=== PATIENT | male | born 1955 | race African-American/Black ===

== ENCOUNTER 2019-09-26 00:02 | Emergency (ER) | payer MEDICAID ==
[~2019-09-26] VITALS: Ht 177.8 cm; Wt 100.0 kg
[~2019-09-26 00:02] MED LIST: ALBU2SYR3 PO; AMOX125S12 PO; BENA20TA10 PO; PHEN100C4 PO
[2019-09-26] MEDS ORDERED: SODIUM CHLORIDE 0.9% 1,000 ML IV ONE (00:30)
[2019-09-26 00:57] LABS: CHLORIDE 105 mEq/L (98-107)
[2019-09-26 01:01] LABS: BASOPHILS % 0.5 % (0.0-2.0); EOSINOPHILS % 6.8 % (0.0-5.0); HEMOGLOBIN. 12.7 g/dL (14.0-18.0); LYMPHOCYTES % 51.7 % (20.0-50.0); MEAN CORPUSCULAR HEMOGLOBIN 33.7 pg (28.0-32.0); MEAN CORPUSCULAR VOLUME 100.8 fL (80.0-94.0); MEAN PLATELET VOLUME 8.6 fl (7.4-10.4); MONOCYTES % 9.9 % (2.0-8.0); NEUTROPHILS % 31.1 % (40.0-76.0); PLATELET 255 x1000/uL (130-400); RED BLOOD CELL COUNT 3.77 mill/uL (4.7-6.1); RED CELL DISTRIBUTION WIDTH 12.5 % (11.6-14.6)
[2019-09-26 03:29] VITALS: BP 129/76
== END 2019-09-26 03:45 | disposition home or self-care (01) ==
LOC: ER 00:02
DX: I95.9 Hypotension, unspecified (principal); J45.909 Unspecified asthma, uncomplicated; I10 Essential (primary) hypertension; R56.9 Unspecified convulsions
CPT/HCPCS: 36415; 71045; 80053; 82962; 83880; 84484; 85025; 96360; 96361; 99284; J7030